=== PATIENT | female | born 1950 | race Hispanic/Latino ===

== ENCOUNTER 2017-10-15 09:38 | Day surgery (SDC) | payer MEDICARE ==
[~2017-10-15] VITALS: Ht 160 cm; Wt 121.1 kg
[~2017-10-15 09:38] MED LIST: ASPIRIN 81 LOW81 MG; ATENOLOL50 MG PO; CELEBREX100 M1 PO; D31000 UNIT PO; LEVOTHYROXIN100 MCG PO; LISINOPRIL20 MG PO; MAXZIDE-2537.5 MG/TA PO; METFORMIN500 MG PO; OMEPRAZOLE10 MG PO; VICTOZA18 MG/3 ML SC
[2017-10-15 14:46] VITALS: BP 140/63
== END 2017-10-15 15:50 | disposition home or self-care (01) ==
LOC: ENDO 09:38 → ORM 09:45 → ENDO 13:30
PROVIDERS: ATTEND Internal Medicine Gastroenterology
PROC: 0DBN8ZX Excision of Sigmoid Colon, Via Natural or Artificial Opening Endoscopic, Diagnostic (ICD-10-PCS; principal; 2017-10-15)
PROC: 0DB48ZX Excision of Esophagogastric Junction, Via Natural or Artificial Opening Endoscopic, Diagnostic (ICD-10-PCS; 2017-10-15)
PROC: 0DB78ZX Excision of Stomach, Pylorus, Via Natural or Artificial Opening Endoscopic, Diagnostic (ICD-10-PCS; 2017-10-15)
DX: K59.00 Constipation, unspecified (principal); K64.8 Other hemorrhoids; K64.4 Residual hemorrhoidal skin tags; K63.5 Polyp of colon; K57.30 Diverticulosis of large intestine without perforation or abscess without bleeding; K21.9 Gastro-esophageal reflux disease without esophagitis; K22.70 Barrett's esophagus without dysplasia; K44.9 Diaphragmatic hernia without obstruction or gangrene; I10 Essential (primary) hypertension; K74.60 Unspecified cirrhosis of liver; K75.81 Nonalcoholic steatohepatitis (NASH); E11.9 Type 2 diabetes mellitus without complications; E03.9 Hypothyroidism, unspecified; Z79.899 Other long term (current) drug therapy; Z86.010 Personal history of colon polyps